=== PATIENT | male | born 1990 | race Hispanic/Latino ===

== ENCOUNTER 2017-11-22 17:58 | Inpatient (IN) | payer SELFPAY ==
[~2017-11-22] VITALS: Ht 175.3 cm; Wt 83.0 kg
[2017-11-22 18:26] LABS: BASOPHILS % (AUTO) 0.5 % (0.0-5.0); EOSINOPHILS % (AUTO) 0.1 % (0.0-8.0); HEMATOCRIT 45.6 % (42-54); LYMPHOCYTES % (AUTO) 15.9 % (21.0-51.0); MEAN CORPUSCULAR HEMOGLOBIN 30.7 pg (27.0-33.0); MEAN CORPUSCULAR HGB CONC 33.5 g/dL (32.0-36.0); MEAN CORPUSCULAR VOLUME 91.6 fL (79-99); NEUTROPHILS % (AUTO) 78.5 % (40.0-77.0); NUCLEATED RED BLOOD CELLS 0.1 % (0.0-0.19); PLATELET COUNT (AUTO) 304 K/uL (130-400); RED BLOOD CELL COUNT(AUTO) 4.98 MIL/uL (4.50-6.20); RED CELL DISTRIBUTION WIDTH 13.7 % (11.0-15.5); WHITE BLOOD COUNT (AUTO) 10.6 K/uL (4.8-10.8)
[2017-11-22] MEDS ORDERED: LORAZEPAM 2 MG/ML 1 ML VIAL ONE (18:31)
[2017-11-22 18:38] LABS: ALBUMIN 4.5 g/dL (3.5-5.0); BILIRUBIN,TOTAL 0.3 mg/dL (0.2-1.0); CREATININE 1.3 mg/dL (0.5-1.5); TOTAL PROTEIN, SERUM 8.4 g/dL (6.0-8.3)
[2017-11-22 18:42] LABS: POTASSIUM 3.9 mmol/L (3.5-5.1)
[2017-11-22 19:15] LABS: APPEARANCE,URINE Clear (CLEAR); BILIRUBIN,URINE Negative (NEGATIVE); COLOR,URINE Yellow (YELLOW); GLUCOSE, URINE (UA) Negative (NEGATIVE); KETONES,URINE 15 mg/dL (NEGATIVE); LEUKOCYTE ESTERASE ,URINE Negative (NEGATIVE); NITRATE,URINE Negative (NEGATIVE); OCCULT BLOOD,URINE Moderate (NEGATIVE); PROTEIN,URINE POS 2+ (NEGATIVE); UROBILINOGEN,URINE 0.2 mg/dL (0.2-1.0)
[2017-11-22 19:23] LABS: AMPHET/METH SCREEN,URINE NEGATIVE (NEGATIVE); BARBITURATE SCREEN, URINE NEGATIVE (NEGATIVE); BENZODIAZEPINES SCREEN,URINE NEGATIVE (NEGATIVE); CANNABINOID SCREEN,URINE POSITIVE (NEGATIVE); COCAINE SCREEN,URINE NEGATIVE (NEGATIVE); OPIATE SCREEN,URINE NEGATIVE (NEGATIVE); PHENCYCLIDINE SCREEN,URINE NEGATIVE (NEGATIVE)
[2017-11-22 19:28] LABS: BACTERIA,URINE Rare /HPF (None Seen); SQUAMOUS EPITHELIAL CELL,UR Rare /HPF (0-2); WBC,URINE 0-1 /HPF (0-1)
[2017-11-22] MEDS ORDERED: SODIUM CHLORIDE 0.9% IV SCH (22:00)
[2017-11-22] MEDS ORDERED: PHENYTOIN SODIUM IV SCH (22:00)
[2017-11-22] MEDS ORDERED: ACETAMINOPHEN 325 MG TAB PO PRN (22:00)
[2017-11-22] MEDS ORDERED: ONDANSETRON HCL 4 MG/2 ML VIAL ONE (23:29)
[2017-11-22] MEDS ORDERED: SODIUM CHLORIDE 0.9% 100 ML IV ONE (23:30)
[2017-11-22] MEDS ORDERED: PHENYTOIN SODIUM 50 MG/ML 5ML VIAL ONE (23:30)
[2017-11-23 00:56] VITALS: BP 144/82
[2017-11-23] MEDS: ONDANSETRON HCL 4 MG/2 ML VIAL IVP PRN ×3 (02:07→16:16)
[2017-11-23 04:00] VITALS: BP 144/72
[2017-11-23 04:33] LABS: MEAN CORPUSCULAR HEMOGLOBIN 29.4 pg (27.0-33.0); MEAN CORPUSCULAR HGB CONC 32.7 g/dL (32.0-36.0); MEAN CORPUSCULAR VOLUME 89.8 fL (79-99); NUCLEATED RED BLOOD CELLS 0.1 % (0.0-0.19); PLATELET COUNT (AUTO) 250 K/uL (130-400); RED CELL DISTRIBUTION WIDTH 13.6 % (11.0-15.5)
[2017-11-23 04:54] LABS: ALBUMIN 4.1 g/dL (3.5-5.0); BILIRUBIN,TOTAL 0.6 mg/dL (0.2-1.0); CREATININE 1.3 mg/dL (0.5-1.5); POTASSIUM 3.4 mmol/L (3.5-5.1); TOTAL PROTEIN, SERUM 7.6 g/dL (6.0-8.3)
[2017-11-23 07:00] VITALS: BP 128/80
[2017-11-23] MEDS ORDERED: PHENYTOIN SODIUM 100 MG ERCAP PO SCH (09:00)
[2017-11-23 11:00] VITALS: BP 132/70
[2017-11-23] MEDS ORDERED: GADODIAMIDE 10 MMOL/20 ML ML IV ONE (11:08)
[2017-11-23 16:00] VITALS: BP 129/76
[2017-11-23 20:00] VITALS: BP 138/76
[2017-11-23] MEDS: LEVETIRACETAM 500 MG TABLET PO SCH (22:01)
[2017-11-24] VITALS: BP 113/73
[2017-11-24 04:00] VITALS: BP 126/91
[2017-11-24 04:36] LABS: HEMATOCRIT 43.6 % (42-54); MEAN CORPUSCULAR HEMOGLOBIN 30.5 pg (27.0-33.0); MEAN CORPUSCULAR HGB CONC 33.8 g/dL (32.0-36.0); MEAN CORPUSCULAR VOLUME 90.2 fL (79-99); PLATELET COUNT (AUTO) 268 K/uL (130-400); RED BLOOD CELL COUNT(AUTO) 4.84 MIL/uL (4.50-6.20); RED CELL DISTRIBUTION WIDTH 13.7 % (11.0-15.5); WHITE BLOOD COUNT (AUTO) 11.2 K/uL (4.8-10.8)
[2017-11-24 04:49] LABS: BAND NEUTROPHILS % (MANUAL) 4 % (0-2); EOSINOPHILS % (MANUAL) 4 % (1-6); LYMPHOCYTES % (MANUAL) 19 % (22-44); MONOCYTES % (MANUAL) 8 % (2-9); SEGMENTED NEUTROPHILS % 65 % (40-70)
[2017-11-24 04:50] LABS: MAN.DIFF COMMENT-IMPRESSION MANUAL DIFFERENTIAL; PLATELET MORPHOLOGY COMMENT ADEQUATE
[2017-11-24 04:53] LABS: ALBUMIN 3.7 g/dL (3.5-5.0); BILIRUBIN,TOTAL 0.8 mg/dL (0.2-1.0); CREATININE 1.4 mg/dL (0.5-1.5); POTASSIUM 3.5 mmol/L (3.5-5.1); TOTAL PROTEIN, SERUM 7.5 g/dL (6.0-8.3)
[2017-11-24 08:00] VITALS: BP 120/60
[2017-11-24] MEDS: LEVETIRACETAM 500 MG TABLET PO SCH (09:10)
[2017-11-24] MEDS ORDERED: LEVE500T8 PO (10:44)
[2017-11-24 12:00] VITALS: BP 144/66
== END 2017-11-24 15:45 | disposition home or self-care (01) | DRG 101 ==
LOC: EDH 17:58 → EDHIP 17:59 → 3AH 11-23 00:43
PROVIDERS: ADMIT Hospitalist; ATTEND Hospitalist
PROC: 3E0234Z Introduction of Serum, Toxoid and Vaccine into Muscle, Percutaneous Approach (ICD-10-PCS; principal; 2017-11-24)
PROC: 4A00X4Z Measurement of Central Nervous Electrical Activity, External Approach (ICD-10-PCS; 2017-11-24)
DX: R56.9 Unspecified convulsions (principal); F12.90 Cannabis use, unspecified, uncomplicated; V47.5XXA Car driver injured in collision with fixed or stationary object in traffic accident, initial encounter; Y92.481 Parking lot as the place of occurrence of the external cause; Y93.89 Activity, other specified; Y99.8 Other external cause status; Z89.421 Acquired absence of other right toe(s); Z23 Encounter for immunization; Z83.3 Family history of diabetes mellitus; Z82.49 Family history of ischemic heart disease and other diseases of the circulatory system; Z82.5 Family history of asthma and other chronic lower respiratory diseases; Z82.3 Family history of stroke; Z82.0 Family history of epilepsy and other diseases of the nervous system
CPT/HCPCS: 36415; 70450; 70553; 71045; 80053; 80305; 81001; 85025; 85027; 95819; A9579; G0008; J1165; J2060; J2405; Q2038